=== PATIENT | female | born 1995 | race Caucasian/White ===

== ENCOUNTER 2020-08-27 02:52 | Inpatient (IN) | payer BC ==
[~2020-08-27] VITALS: Ht 157.5 cm; Wt 88.0 kg
[2020-08-27] MEDS ORDERED: VITAFOL-OB+DHA1 EACH PO (04:02)
--- NOTE | 2020-08-27 11:49 | PR ---
[facility] [address] [facility] [address] [place] [address] [place], [place] [address] Signed Progress Notes IP Datetime Report Generated by CPRadha: 08/27/2020 11:48 PROGRESS NOTES: [id number] Impression: Normal Progression of Labor; Reassuring Heart Rate Procedures: Artificial ROM; Sterile Vag Exam Plan: Continue Present Management VITAL SIGNS: [id number] Vital Signs: Reviewed; Within Normal Limits EXAM: [id number] Dilatation: 4.5 Effacement: 90 Station: -2 Contractions: q 2 to 3 min MEMBRANES: [id number] ROM Note: By Dr. Wang Comments: Comfortable after epidural. May need pit augment if contractions not increasing after AROM. status reassuring. FETUS A: [id number] FHR Baseline: 125 Variability: Moderate 6-25bpm Accelerations: 15X15 Decelerations: None FHR Category: Category I Presentation: Vertex Comments on Fetus A: No evidence of metabolic acidosis FETUS B: [id number] Signing Physician: Natali Wang MD Copies: ~ *Electronically Signed* 08/27/20 1148 NATALI WANG MD PATIENT NAME: CAITLIN CARDENAS PROGRESS NOTE DATE OF : 93 PHYSICIAN: NATALI WANG MD RPT #: [id number] REPORT IS CONFIDENTIAL AND NOT TO BE RELEASED WITHOUT AUTHORIZATION
--- NOTE | 2020-08-27 12:32 | PR ---
[facility] [address] [place], [place] [address] Signed Progress Notes IP Datetime Report Generated by CPN: 08/27/2020 12:32 PROGRESS NOTES: [id number] Impression: Reassuring Heart Rate Procedures: Artificial ROM; Sterile Vag Exam Plan: Augmentation VITAL SIGNS: [id number] Vital Signs: Reviewed; Within Normal Limits EXAM: [id number] Dilatation: 4.5 Effacement: 90 Station: -2 Contractions: q 2 to 3 min MEMBRANES: [id number] ROM Note: By Dr. Wang Comments: Contraction pattern still not adequate after AROM. I feel pit augment is needed. There continues to be good variability but will need to continue to watch strip closely given the decels. FETUS A: [id number] FHR Baseline: 125 Variability: Moderate 6-25bpm Accelerations: 15X15 Decelerations: None FHR Category: Category I Presentation: Vertex Comments on Fetus A: No evidence of metabolic acidosis FETUS B: [id number] Signing Physician: Natali Wang MD Copies: ~ *Electronically Signed* 08/27/20 1232 NATALI WANG MD PATIENT NAME: CAITLIN CARDENAS PROGRESS NOTE DATE OF : 93 PHYSICIAN: NATALI WANG MD RPT #: [id number] REPORT IS CONFIDENTIAL AND NOT TO BE RELEASED WITHOUT AUTHORIZATION
--- NOTE | 2020-08-27 19:49 | PR ---
[facility] [address] [facility] [place] [place] [address] Signed Progress Notes IP Datetime Report Generated by CPN: 08/27/2020 19:49 PROGRESS NOTES: [id number] Impression: Reassuring Heart Rate Other Impressions: slow labor progression Procedures: Intrauterine Pressure Catheter; Sterile Vag Exam Plan: Continue Present Management Other Plans: continue close observation VITAL SIGNS: [id number] Vital Signs: Reviewed; Within Normal Limits EXAM: [id number] Dilatation: 9.0 Effacement: 90 Station: 0 Contractions: q 2 to 3 min MEMBRANES: [id number] ROM Note: By Dr. Wang Comments: Slow progress. Will place IUPC to evaluate contraction strength. Variables have been occurring but still good variability. Will continue position changes and close observation. FETUS A: [id number] FHR Baseline: 125 Variability: Moderate 6-25bpm Accelerations: 15X15 Decelerations: None FHR Category: Category I Presentation: Vertex Comments on Fetus A: No evidence of metabolic acidosis FETUS B: [id number] Signing Physician: Natali Wang MD Copies: ~ *Electronically Signed* 08/27/201948 NATALI WANG MD PATIENT NAME: CAITLIN CARDENAS PROGRESS NOTE DATE OF : 93 PHYSICIAN: NATALI WANG MD RPT #: [id number] REPORT IS CONFIDENTIAL AND NOT TO BE RELEASED WITHOUT AUTHORIZATION
--- NOTE | 2020-08-29 07:42 | PR ---
[facility] [address] [facility] [place], [place] [address] Signed PP Progress Notes Datetime Report Generated by KEI: 08/29/2020 07:42 SUBJECTIVE: [id number] Pain: Within Normal Limits Vital Signs: [id number] Vital Signs: Reviewed; Within Normal Limits Cardiovascular: Not Done Respiratory: Not Done Abdomen/Uterus: Abnormal Lochia: Normal Vulva/Perineum: Not Done Breasts: Not Done CVA Tenderness: Not Done Extremities: Normal Incision: Not Applicable Progress: Normal Exam Comments: Fundus firm, NT @ U-2. H/H 9.9/30.4, WBC 19.2, plat 258k IMPRESSION/PLAN/PROCEDURES: [id number] Impression: Normal Progression Plan: Discharge Procedures: Rhogam Progress Notes: Doing well. They desire discharge. Signing Physician: Natali Wang MD Copies: ~ *Electronically Signed* 08/29/20 0742 NATALI WANG MD PATIENT NAME: CAITLIN CARDENAS PROGRESS NOTE DATE OF : 93 PHYSICIAN: NATALI WANG MD RPT #: [id number] REPORT IS CONFIDENTIAL AND NOT TO BE RELEASED WITHOUT AUTHORIZATION
== END 2020-08-29 11:30 | disposition home or self-care (01) | DRG 807 ==
LOC: FBCO 02:52 → FBC 03:37
PROVIDERS: ADMIT Obstetrics & Gynecology; ATTEND Obstetrics & Gynecology
PROC: 10H07YZ Insertion of Other Device into Products of Conception, Via Natural or Artificial Opening (ICD-10-PCS; 2020-08-27)
PROC: 10907ZC Drainage of Amniotic Fluid, Therapeutic from Products of Conception, Via Natural or Artificial Opening (ICD-10-PCS; 2020-08-27)
PROC: 00HU33Z Insertion of Infusion Device into Spinal Canal, Percutaneous Approach (ICD-10-PCS; 2020-08-27)
PROC: 3E0R3BZ Introduction of Anesthetic Agent into Spinal Canal, Percutaneous Approach (ICD-10-PCS; 2020-08-27)
PROC: 10E0XZZ Delivery of Products of Conception, External Approach (ICD-10-PCS; principal; 2020-08-28)
PROC: 0KQM0ZZ Repair Perineum Muscle, Open Approach (ICD-10-PCS; 2020-08-28)
PROC: 3E0234Z Introduction of Serum, Toxoid and Vaccine into Muscle, Percutaneous Approach (ICD-10-PCS; 2020-08-29)
DX: O69.1XX0 Labor and delivery complicated by cord around neck, with compression, not applicable or unspecified (principal); Z37.0 Single live birth; O26.893 Other specified pregnancy related conditions, third trimester; O70.1 Second degree perineal laceration during delivery; Z3A.40 40 weeks gestation of pregnancy; Z67.11 Type A blood, Rh negative; O77.0 Labor and delivery complicated by meconium in amniotic fluid
CPT/HCPCS: 01960; 36415; 59025; 82803; 83030; 85027; 86850; 86900; 86901; A9270; J2001; J2590; J2790; J2795; J3010; J7121